=== PATIENT | male | born 1990 | race Caucasian/White ===

== ENCOUNTER 2018-12-26 13:39 | Emergency (ER) | payer OTHER ==
[~2018-12-26] VITALS: Ht 165.1 cm; Wt 54.4 kg
[2018-12-26] MEDS ORDERED: NKM (13:47)
--- NOTE | 2018-12-26 13:55 | NUR ---
ED Nurse Note: Pt arrived from work. Pt cut finger on food machinery. Pt is alert and oriented x4. Pt states pain is 3/10 R 3rd digit finger. Pt denies numbness or tingling. Site cleansed with normal saline. Scant serosanguineous drainage.
--- NOTE | 2018-12-26 13:58 | NUR ---
ED Nurse Note: dried blood stain cleaned from Rt hand with NS and gauze.
[2018-12-26] MEDS ORDERED: Tetanus/Diptheria/Pertussis IM ONE (14:00)
[2018-12-26 14:02] VITALS: BP 115/84
--- NOTE | 2018-12-26 14:22 | NUR ---
ED Nurse Note: x-ray at bedside.
--- NOTE | 2018-12-26 14:31 | Emergency Room Report ---
History of Present Illness General Chief Complaint: Laceration Source: Patient Present Illness HPI 28-year-old male with no symptom past medical history here in our past and avulsion laceration to his finger while using a knife at work. Patient reports that the beginning he had a lot of bleeding however bleeding has subsided now. Patient has full range of motion, and no motor or sensory deficits. Reports that he is not up-to-date with tetanus shot. Denies all other injuries, chest pain, shortness of breath, abdominal or associated symptoms. Rating the pain 3 out of 10 without radiation. Denies tingling and numbness. Allergies: Coded Allergies: No Known Allergies (Unverified , 12/26/18) Patient History Past Medical History: see triage record Past Surgical History: unable to obtain Pertinent Family History: none Immunizations: UTD Reviewed Nursing Documentation: PMH: Agreed; PSxH: Agreed Nursing Documentation-PMH Past Medical History: No Stated History Review of Systems All Other Systems: negative except mentioned in HPI Physical Exam Vital Signs Date Time Temp Pulse Resp B/P (MAP) Pulse Ox O2 Delivery O2 Flow Rate FiO2 12/26/18 13:44 98.1 83 18 121/86 (98) 98 Room Air Sp02 EP Interpretation: reviewed, normal General Appearance: no apparent distress, alert, GCS 15, non-toxic Head: normocephalic Eyes: bilateral eye normal inspection, bilateral eye PERRL ENT: hearing grossly normal, normal pharynx, no angioedema, normal voice Neck: full range of motion, supple, thyroid normal, supple/symm/no masses Respiratory: chest non-tender, lungs clear, normal breath sounds, no rhonchi, no wheezing, speaking full sentences Cardiovascular #1: regular rate, rhythm, no edema, no murmur, normal capillary refill Cardiovascular #2: 2+ radial (R), 2+ radial (L) Gastrointestinal: normal bowel sounds, non tender, soft, non-distended, no guarding, no rebound Rectal: deferred Genitourinary: no CVA tenderness Musculoskeletal: back normal, normal range of motion, non-tender Neurologic: normal inspection, alert, oriented x3, responsive Psychiatric: normal inspection, judgement/insight normal, memory normal Skin: laceration - Avulsion laceration finger Procedures Laceration/Wound Repair Laceration/Wound Repair : Consent: Verbal Wound Location: upper extremity - right finger Wound's Depth, Shape: superficial Wound Length (cm): 1 Wound Explored: contaminated Irrigated w/ Saline (ccs): 20 Betadine Prep?: Yes Sterile Dressing Applied?: Yes Splint Applied?: No Sling Applied?: No Patient Tolerated: Well Complications: None Medical Decision Making PA Attestation All my diagnosis and treatment plans were reviewed ad discussed with my supervising physician Dr. Méndez Diagnostic Impression: Primary Impression: Finger laceration ER Course 28-year-old male with no symptom past medical history here in our past and avulsion laceration to his finger while using a knife at work. Patient reports that the beginning he had a lot of bleeding however bleeding has subsided now. Patient has full range of motion, and no motor or sensory deficits. Reports that he is not up-to-date with tetanus shot. Denies all other injuries, chest pain, shortness of breath, abdominal or associated symptoms. Rating the pain 3 out of 10 without radiation. Denies tingling and numbness. Ddx considered but are not limited to : Superficial laceration, deep laceration , tendon involvement with laceration, laceration with foreign body Vital signs: are WNL, pt. is afebrile H&PE are most consistent with:superficial avulsion lac right finger ORDERS: Augmentin, ibuprofen ED INTERVENTIONS: Wound wrapped and dressed as there was no need for any Dermabond, Steri-Strips, or sutures as this is the type of laceration that the top layer is completely gone patient had no bleeding at time of discharge. Wound clean and dressed was done properly. Patient was given tetanus shot upon arrival and refused any pain medication as did not have any pain. DISCHARGE: At this time pt. is stable for d/c to home. Will provide printed patient care instructions, and any necessary prescriptions. Care plan and follow up instructions have been discussed with the patient prior to discharge. Patient needs wound check in 2 to 3 days I advised him to either return to [facility] or go see primary care physician. If worsening symptoms return to emergency room sooner. Other X-Ray Diagnostic Results Other X-Ray Diagnostic Results : X-Ray ordered: Right finger # of Views/Limited Vs Complete: 3 View Indication: Pain EP Interpretation: Yes PA Xray: Interpretation reviewed, by supervising MD, and agrees with findings. Interpretation: no dislocation, no soft tissue swelling, no fractures, other - No foreign body suspected Impression: No acute disease Electronically Signed by: Mukul Underwood PA-C Last Vital Signs Date Time Temp Pulse Resp B/P (MAP) Pulse Ox O2 Delivery O2 Flow Rate FiO2 12/26/18 14:02 98.0 68 20 115/84 98 Room Air Disposition: HOME, SELF-CARE Condition: Stable Scripts Ibuprofen (Ibu) 800 Mg Tablet 800 MG PO BID, #20 TAB Prov: Mukul Rodrigues 12/26/18 Amoxicillin/Potassium Clav 875-125* (AUGMENTIN 875-125 TABLET*) 1 Each Tablet 1 TAB ORAL TWICE A DAY for 10 Days, #20 TAB Prov: Mukul Rodrigues 12/26/18 Patient Instructions: Laceration Care, Adult Additional Instructions: Take medication as directed, follow-up with your primary care provider, you need to have wound check every 2 days for 1 week. Avoid strenuous physical activity with the affected side. Mukul Rodrigues Dec 26, 2018 14:31
--- NOTE | 2018-12-26 14:35 | Diagnostic Imaging Report ---
Indication: pain in finger. trauma Findings: 3 views of the right third finger were obtained. No acute fractures, malalignment, erosions, or periosteal reaction are seen. There is a small soft tissue defect at the tip of the third finger which is presumably due to injury. There is no radiopaque foreign body identified. IMPRESSION: Soft tissue injury
[2018-12-26] MEDS ORDERED: IBU800 MG PO (14:44)
[2018-12-26] MEDS ORDERED: AUGMENTIN 875-1 EAC1 ORAL (14:44)
--- NOTE | 2018-12-26 14:49 | NUR ---
ER DISCHARGE NOTE: Patient is cleared to be discharged per ERMD, pt is aox4, on room air, with stable vital signs. pt was given dc and prescription instructions, pt was able to verbalize understanding, pt id band removed. pt is able to ambulate with steady gait. pt took all belongings.
[2018-12-26 14:59] VITALS: BP 123/76
== END 2018-12-26 14:59 | disposition home or self-care (01) ==
LOC: EMR 14:06
DX: S61.212A Laceration without foreign body of right middle finger without damage to nail, initial encounter (principal); W26.0XXA Contact with knife, initial encounter; Y93.9 Activity, unspecified; Y92.9 Unspecified place or not applicable
CPT/HCPCS: 90471; 90715; 99283